=== PATIENT | female | born 1955 | race American Indian/Alaskan Native ===

== ENCOUNTER 2020-07-07 16:03 | Emergency (ER) | payer MEDICAID, OTHER ==
[~2020-07-07] VITALS: Ht 149.9 cm; Wt 100.0 kg
[~2020-07-07 16:03] MED LIST: ALBU8.5H4 IH; HYDR-4353 PO; LEVO50TA67 PO; PANT40TA39 PO; PRED-352 PO
[2020-07-07] MEDS ORDERED: acetaminophen 325mg tablet PO ONE (17:55)
[2020-07-07] MEDS ORDERED: normal saline 1000ml 1,000 ML IV ONE (17:55)
[2020-07-07] MEDS ORDERED: BAMLANIVIMAB INJECTION 700 MG in normal saline 250ml IV soln 180 ML IV ONE (17:55)
[2020-07-07] MEDS ORDERED: BAMLANIVIMAB INJECTION 700 MG in normal saline 250ml IV soln 250 ML IV ONE (18:08)
[2020-07-07 18:28] LABS: BASOPHILS # (AUTO) 0.1 X10'3 (0-0.2); BASOPHILS % (AUTO) 1.2 % (0-1); EOSINOPHILS % (AUTO) 0.6 % (0-6); HEMATOCRIT 52.3 % (35.0-45.0); HEMOGLOBIN 17.5 g/dl (12.0-16.0); LYMPHOCYTES # (AUTO) 1.2 X10'3 (1.1-4.8); MEAN CORPUSCULAR HEMOGLOBIN 30.6 PG (27.0-31.0); MEAN CORPUSCULAR HGB CONC 33.4 g/dL (33.0-36.5); MEAN CORPUSCULAR VOLUME 91.7 FL (78-98); MEAN PLATELET VOLUME 7.9 FL (7.4-10.4); MONOCYTES # (AUTO) 0.4 X10'3 (0-0.9); MONOCYTES % (AUTO) 6.5 % (2-12); NEUTROPHILS % (AUTO) 70.7 % (42-75); PLATELET COUNT 206 X10'3 (140-440); RED BLOOD COUNT 5.71 X10'6 (4.20-5.60); RED CELL DISTRIBUTION WIDTH 13.4 % (11.5-14.5); WHITE BLOOD COUNT 5.6 X10'3 (4.5-11.0)
[2020-07-07 18:33] LABS: D-DIMER 0.43 MG/L FEU (0-0.50); PARTIAL THROMBOPLASTIN TIME 24 SECONDS (22-32)
[2020-07-07 18:39] LABS: ALANINE AMINOTRANSFERASE 61 U/L (12-78); ALBUMIN 3.1 G/DL (3.4-5.0); ALBUMIN/GLOBULIN RATIO 0.6 (1.1-1.5); ALKALINE PHOSPHATASE 116 IU/L (46-116); ANION GAP 12 (8-16); ASPARTATE AMINO TRANSFERASE 47 U/L (10-37); BILIRUBIN,TOTAL 0.9 MG/DL (0.1-1.0); BLOOD UREA NITROGEN 14 MG/DL (7-18); BUN/CREATININE RATIO 20.6 (6.6-38.0); CALCIUM 8.6 MG/DL (8.5-10.1); CHLORIDE 107 MMOL/L (99-107); CREATININE 0.68 MG/DL (0.40-0.90); GLUCOSE 141 MG/DL (70-104); POTASSIUM 3.1 MMOL/L (3.5-5.1); SODIUM 145 MMOL/L (135-145); TOTAL CARBON DIOXIDE 26.2 MMOL/L (24-32); TOTAL PROTEIN 7.9 G/DL (6.4-8.2); eGFR 87 ML/MIN
[2020-07-07 18:52] LABS: C-REACTIVE PROTEIN 2.54 MG/DL (0.0-0.5); CREATINE KINASE 106 U/L (26-192); MAGNESIUM 1.9 MG/DL (1.5-2.4)
[2020-07-07] MEDS ORDERED: potassium Cl 20 mEq SR tablet PO ONE (18:55)
[2020-07-07] MEDS ORDERED: magnesium oxide 400mg tablet PO ONE (18:55)
[2020-07-07 19:22] LABS: CLARITY,URINE CLEAR (Clear); COLOR,URINE AMBER (Yellow); GLUCOSE, URINE 100 mg/dl (Neg); KETONES,URINE TRACE mg/dl (Neg); LEUKOCYTE ESTERASE ,URINE NEGATIVE (Neg); NITRITES, URINE NEGATIVE (Neg); OCCULT BLOOD,URINE NEGATIVE (Neg); PROTEIN,URINE 30 mg/dl (Neg); UROBILINOGEN,URINE >=8.0 E.U/dL (0.2-1.0)
[2020-07-07 19:25] LABS: UA COLLECTION TYPE URINAL
[2020-07-07 19:30] LABS: BACTERIA,URINE NONE SEEN /HPF (Neg); RBC,URINE NONE SEEN /HPF (0-2); SQUAMOUS EPITHELIAL CELL,UR MODERATE /LPF (FEW); WBC,URINE 0-4 /HPF (0-4)
--- NOTE | 2020-07-07 19:41 | NUR ---
Pt resting states she is having an easier time breathing. IV site checked and unremarkable, vitals taken. Pt denies any new complaints at this time.
[2020-07-07 21:43] VITALS: BP 133/71
--- NOTE | 2020-07-07 22:01 | NUR ---
Pt IV removed awaiting transportation to arrive. ETA 10 min
[2020-07-10] MEDS ORDERED: DEC4T PO (10:08)
[2020-07-10] MEDS ORDERED: ASPI81TA52 PO (10:08)
== END 2020-07-07 22:19 | disposition home or self-care (01) ==
LOC: ER 16:04
DX: U07.1 COVID-19 (principal); E66.9 Obesity, unspecified; R06.00 Dyspnea, unspecified; R06.02 Shortness of breath; R43.8 Other disturbances of smell and taste; J45.909 Unspecified asthma, uncomplicated; F17.200 Nicotine dependence, unspecified, uncomplicated; Z86.711 Personal history of pulmonary embolism; Z90.49 Acquired absence of other specified parts of digestive tract; Z90.710 Acquired absence of both cervix and uterus; Z98.890 Other specified postprocedural states; Z88.5 Allergy status to narcotic agent; Z79.899 Other long term (current) drug therapy
CPT/HCPCS: 36415; 71045; 80053; 81001; 82550; 83605; 83735; 83874; 84145; 84484; 85025; 85379; 85610; 85730; 86140; 87040; 93005; 96360; 96361; 99285; J7030; M0239; Q0239; 96365

== ENCOUNTER 2024-06-16 01:40 | Emergency (ER) | payer MEDICAID, OTHER ==
[~2024-06-16] VITALS: Ht 149.9 cm; Wt 90.5 kg
[~2024-06-16 01:40] MED LIST changes: -HYDR-4353 PO; -LEVO50TA67 PO; -PANT40TA39 PO; -PRED-352 PO
[2024-06-16 02:09] LABS: BASOPHILS # (AUTO) 0.1 X10'3 (0-0.2); BASOPHILS % (AUTO) 1.5 % (0-1); EOSINOPHILS # (AUTO) 0.2 X10'3 (0-0.9); EOSINOPHILS % (AUTO) 3.9 % (0-6); HEMATOCRIT 46.9 % (35.0-45.0); HEMOGLOBIN 15.9 g/dl (12.0-16.0); LYMPHOCYTES # (AUTO) 1.6 X10'3 (1.1-4.8); LYMPHOCYTES % (AUTO) 27.9 % (21-51); MEAN CORPUSCULAR HEMOGLOBIN 30.8 PG (27.0-31.0); MEAN CORPUSCULAR HGB CONC 33.9 g/dL (33.0-36.5); MEAN PLATELET VOLUME 8.3 FL (7.4-10.4); MONOCYTES # (AUTO) 0.6 X10'3 (0-0.9); MONOCYTES % (AUTO) 10.8 % (2-12); NEUTROPHILS # (AUTO) 3.3 X10'3 (1.8-7.7); NEUTROPHILS % (AUTO) 55.9 % (42-75); PLATELET COUNT 221 X10'3 (140-440); RED BLOOD COUNT 5.16 X10'6 (4.20-5.60); RED CELL DISTRIBUTION WIDTH 13.6 % (11.5-14.5); WHITE BLOOD COUNT 5.8 X10'3 (4.5-11.0)
[2024-06-16 02:26] LABS: ALANINE AMINOTRANSFERASE 79 U/L (12-78); ALBUMIN 3.1 G/DL (3.4-5.0); ALBUMIN/GLOBULIN RATIO 0.9 (1.1-1.5); ALKALINE PHOSPHATASE 126 IU/L (46-116); ANION GAP 10 (8-16); ASPARTATE AMINO TRANSFERASE 55 U/L (10-37); BILIRUBIN,TOTAL 0.4 MG/DL (0.1-1.0); BLOOD UREA NITROGEN 21 MG/DL (7-18); BUN/CREATININE RATIO 31.8 (10.0-20.0); CALCIUM 9.2 MG/DL (8.5-10.1); CHLORIDE 106 MMOL/L (99-107); CREATININE 0.66 MG/DL (0.40-0.90); GLUCOSE 248 MG/DL (70-104); POTASSIUM 3.2 MMOL/L (3.5-5.1); SODIUM 142 MMOL/L (135-145); TOTAL CARBON DIOXIDE 26.4 MMOL/L (24-32); TOTAL PROTEIN 6.6 G/DL (6.4-8.2); eCRCL 56 ML/MIN; eGFR 89 ML/MIN
[2024-06-16 02:33] LABS: PRO BRAIN NATRIURETIC PEPTIDE 45 PG/ML (0-125)
[2024-06-16] MEDS: LIDOcaine 2% Viscous 15ml cup MM ONE (03:12)
[2024-06-16] MEDS: mag hydrox/Alum hydrox/simeth 30ml oral suspension PO ONE (03:12)
[2024-06-16] MEDS: normal saline 1000ml 1,000 ML IV ONE (03:13)
[2024-06-16] MEDS: ondansetron/PF 4mg/2ml inj IV ONE (03:15)
[2024-06-16] MEDS ORDERED: MAG355OR18 PO (05:19)
[2024-06-16] MEDS: famotidine/PF 10 mg/ml inj IV ONE (05:24)
[2024-06-16 05:41] VITALS: BP 116/68; PULSE 76; RESP 14; TEMP 98.2; O2SAT 96
[2024-06-16 06:34] LABS: OCCULT BLOOD STOOL NEGATIVE (Neg)
== END 2024-06-16 05:43 | disposition home or self-care (01) ==
LOC: ER 01:41
DX: R07.89 Other chest pain (principal); J45.909 Unspecified asthma, uncomplicated; E11.9 Type 2 diabetes mellitus without complications; E07.9 Disorder of thyroid, unspecified; Z86.711 Personal history of pulmonary embolism; Z90.49 Acquired absence of other specified parts of digestive tract; Z90.710 Acquired absence of both cervix and uterus; Z88.5 Allergy status to narcotic agent
CPT/HCPCS: 36415; 71045; 80053; 82272; 83880; 84484; 85025; 85379; 93005; 96374; 96375; 99285; J2405; J3490; J7030